=== PATIENT | female | born 1995 | race Caucasian/White ===

== ENCOUNTER 2024-04-05 11:01 | Emergency (ER) | payer BC ==
[~2024-04-05] VITALS: Ht 162.6 cm; Wt 131.5 kg
[2024-04-05] MEDS ORDERED: HYDROCODON-ACE1 EA11 PO (13:27)
[2024-04-05 13:36] VITALS: PULSE 74; RESP 18; TEMP 98.4; O2SAT 99
== END 2024-04-05 13:38 | disposition home or self-care (01) ==
LOC: ER 11:06
DX: S82.442A Displaced spiral fracture of shaft of left fibula, initial encounter for closed fracture (principal); W01.0XXA Fall on same level from slipping, tripping and stumbling without subsequent striking against object, initial encounter; Y93.01 Activity, walking, marching and hiking; Y92.89 Other specified places as the place of occurrence of the external cause; F41.9 Anxiety disorder, unspecified; F32.A Depression, unspecified
CPT/HCPCS: 99283